=== PATIENT | female | born 1960 | race Caucasian/White ===

== ENCOUNTER 2019-11-15 00:21 | Emergency (ER) | payer OTHER ==
[~2019-11-15] VITALS: Ht 162.6 cm; Wt 56.7 kg
[~2019-11-15 00:21] MED LIST: FLEXERIL PO; HYDROCODON-ACE1 EACH PO; PRILOSEC40 MG PO
[2019-11-15] MEDS ORDERED: TORADOL 10 MG T10 MG PO (01:47)
[2019-11-15] MEDS ORDERED: ZOFRAN ODT4 MG PO (01:47)
[2019-11-15] MEDS ORDERED: HYDROCODON-ACE1 EAC7 PO (01:47)
[2019-11-15 02:00] VITALS: BP 196/90
== END 2019-11-15 02:00 | disposition home or self-care (01) ==
LOC: M.ERS 00:21
DX: S82.092A Other fracture of left patella, initial encounter for closed fracture (principal); M25.462 Effusion, left knee; F17.210 Nicotine dependence, cigarettes, uncomplicated; Z98.51 Tubal ligation status; Z90.89 Acquired absence of other organs; Z88.0 Allergy status to penicillin; Z88.8 Allergy status to other drugs, medicaments and biological substances; W18.39XA Other fall on same level, initial encounter; Y93.89 Activity, other specified; Y92.89 Other specified places as the place of occurrence of the external cause; Y99.8 Other external cause status